=== PATIENT | male | born 1950 | race Caucasian/White ===

== ENCOUNTER 2016-09-09 08:40 | Outpatient (CLI) | payer MEDICARE, OTHER | END 2016-09-09 08:41 | disposition home or self-care (01) | DX: R97.20 Elevated prostate specific antigen [PSA] (principal) ==

== ENCOUNTER 2016-11-10 08:30 | Outpatient (CLI) | payer MEDICARE | END 2016-11-10 08:31 | disposition home or self-care (01) | DX: E78.2 Mixed hyperlipidemia (principal); Z79.899 Other long term (current) drug therapy ==

== ENCOUNTER 2017-04-14 08:49 | Outpatient (CLI) | payer MEDICARE ==
[2017-04-14 18:36] LABS: PSA FREE 0.877 ng/mL (0.16-2.81)
[2017-04-14 18:37] LABS: PSA TOTAL 4.162 ng/mL (0.000-2.000)
== END 2017-04-14 08:50 | disposition home or self-care (01) ==
LOC: LAB.F 08:49
PROVIDERS: ATTEND Internal Medicine
DX: Z87.898 Personal history of other specified conditions (principal)
CPT/HCPCS: 36415; 84154

== ENCOUNTER 2017-11-06 10:34 | Outpatient (CLI) | payer MEDICARE ==
--- NOTE | 2017-11-06 12:33 | XRAY Report ---
TWO VIEW CHEST: 11/06/2017 COMPARISON: No comparison. INDICATION: Fever and cough for 3 days. TECHNIQUE: Two views FINDINGS: Clear lungs. No pneumothorax or pleural effusion. Mediastinum unremarkable. IMPRESSION: NEGATIVE CHEST. TD: 11/06/2017 12:33 MTDD
== END 2017-11-06 10:35 | disposition home or self-care (01) ==
LOC: DI 10:34
PROVIDERS: ATTEND Physician Assistant Medical
DX: R05 Cough (principal); R50.9 Fever, unspecified
CPT/HCPCS: 71046

== ENCOUNTER 2017-11-15 08:24 | Outpatient (CLI) | payer MEDICARE ==
[2017-11-15 11:05] LABS: PSA TOTAL 4.5 ng/mL (0.000-2.000)
[2017-11-15 11:06] LABS: PSA FREE 0.66 ng/mL (0.16-2.81)
[2017-11-15 17:59] LABS: ALBUMIN 3.3 g/dL (3.2-5.5); ALBUMIN/GLOBULIN RATIO 0.8 (1.0-2.2); ALKALINE PHOSPHATASE 73 IU/L (42-121); ALT ALANINE AMINOTRANSFERASE 21 IU/L (10-60); AST ASPARTATE AMINOTRANSFERASE 28 IU/L (10-42); BILIRUBIN,TOTAL 0.8 mg/dL (0.2-1.0); BUN - BLOOD UREA NITROGEN 17 mg/dL (6-20); CALCIUM 9.4 mg/dL (8.5-10.3); CARBON DIOXIDE - CO2 24 mmol/L (21-32); CHLORIDE 101 mmol/L (101-111); CHOLESTEROL 114 mg/dL; GFR - MDRD 74 (>89); GLUCOSE 97 mg/dL (70-100); HDL CHOLESTEROL 23 mg/dL; LDL CHOLESTEROL,CALCULATED 75 mg/dL; LDL/HDL RATIO 3.3 (<3.6); SODIUM 134 mmol/L (135-145); TOTAL PROTEIN 7.2 g/dL (6.7-8.2); VLDL CHOLESTEROL 16 mg/dL
[2017-11-16 15:36] LABS: HEPATITIS C ANTIBODY NON-REACTIVE (NON-REACTIVE)
== END 2017-11-15 08:25 | disposition home or self-care (01) ==
LOC: LAB.F 08:24
PROVIDERS: ATTEND Internal Medicine
DX: D12.6 Benign neoplasm of colon, unspecified (principal); E78.5 Hyperlipidemia, unspecified; Z12.5 Encounter for screening for malignant neoplasm of prostate; Z87.898 Personal history of other specified conditions; Z72.89 Other problems related to lifestyle
CPT/HCPCS: 36415; 80053; 80061; 83721; 84154; 86803

== ENCOUNTER 2018-05-25 09:05 | Outpatient (CLI) | payer MEDICARE ==
[2018-05-25 11:13] LABS: PSA FREE 0.89 ng/mL (0.16-2.81)
[2018-05-25 11:15] LABS: PSA TOTAL 5.01 ng/mL (0.000-2.000)
== END 2018-05-25 09:06 | disposition home or self-care (01) ==
LOC: LAB.F 09:05
PROVIDERS: ATTEND Internal Medicine
DX: R97.20 Elevated prostate specific antigen [PSA] (principal)
CPT/HCPCS: 36415; 84154

== ENCOUNTER 2018-07-27 07:47 | Outpatient (CLI) | payer MEDICARE | END 2018-07-27 07:48 | disposition home or self-care (01) | LOC: LAB.F 07:47 | PROVIDERS: ATTEND Urology | DX: R97.20 Elevated prostate specific antigen [PSA] (principal) | CPT/HCPCS: 36415; 84153 ==

== ENCOUNTER 2018-11-14 10:06 | Outpatient (CLI) | payer MEDICARE | END 2018-11-14 10:07 | disposition home or self-care (01) | LOC: LAB.F 10:06 | PROVIDERS: ATTEND Urology | DX: Z53.9 Procedure and treatment not carried out, unspecified reason (principal) | CPT/HCPCS: 36415; 81001; 81003; 84153; 87086 ==

== ENCOUNTER 2018-11-19 08:03 | Outpatient (CLI) | payer MEDICARE ==
[2018-11-19 11:28] LABS: BILIRUBIN,URINE NEGATIVE (NEGATIVE); GLUCOSE, URINE (UA) NEGATIVE (NEGATIVE); KETONES,URINE (UA) NEGATIVE (NEGATIVE); LEUKOCYTE ESTERASE, URINE NEGATIVE (NEGATIVE); NITRITE,URINE NEGATIVE (NEGATIVE); OCCULT BLOOD,URINE NEGATIVE (NEGATIVE); PROTEIN,URINE NEGATIVE (NEGATIVE); UROBILINOGEN,URINE 0.2 (NORMAL) E.U./dL (NORMAL)
[2018-11-19 11:39] LABS: CLARITY,URINE CLEAR (CLEAR)
[2018-11-19 12:09] LABS: BACTERIA,URINE Rare /HPF (None Seen); RBC,URINE 0-5 /HPF (0-5); SQUAMOUS EPITHELIAL CELL,UR RARE Squamous (<= Few)
== END 2018-11-19 08:04 | disposition home or self-care (01) ==
LOC: LAB.F 08:03
PROVIDERS: ATTEND Urology
DX: R97.20 Elevated prostate specific antigen [PSA] (principal)
CPT/HCPCS: 36415; 81001; 84153; 87086

== ENCOUNTER 2018-12-07 11:58 | Outpatient (CLI) | payer MEDICARE ==
--- NOTE | 2018-12-07 13:26 | XRAY Report ---
Reason: COUGH Procedure Date: 12/07/2018 Accession Number: [id number] / [id number] Procedure: XR - Chest 2 View X-Ray CPT Code: 84866 FULL RESULT: EXAM: CHEST RADIOGRAPHY EXAM DATE: 12/07/2018 12:26 PM. CLINICAL HISTORY: Cough. COMPARISON: CHEST 2 VIEW 11/06/2017 12:21 PM. TECHNIQUE: 2 views. FINDINGS: Lungs/Pleura: There are subtle increased densities in the right lower to mid lung, likely middle lobe. High lung volumes with flattened diaphragms, similar to 2018 and associated with obstructive lung disease. Mediastinum: Heart and mediastinal contours are unremarkable. Other: None. IMPRESSION: Subtle interval increase in opacities in the right lung possibly represent early airspace disease in the setting of obstructive lung disease. RADIA
== END 2018-12-07 11:59 | disposition home or self-care (01) ==
LOC: DI 11:58
PROVIDERS: ATTEND Nurse Practitioner Family
DX: R91.8 Other nonspecific abnormal finding of lung field (principal)
CPT/HCPCS: 71046

== ENCOUNTER 2019-01-04 11:46 | Outpatient (CLI) | payer MEDICARE ==
--- NOTE | 2019-01-04 13:13 | XRAY Report ---
Reason: SPONDYLOSIS,LUMBAR,WITH RADICULOPATHY Procedure Date: 01/04/2019 Accession Number: [id number] / [id number] Procedure: XR - Chest 2 View X-Ray CPT Code: 30716 FULL RESULT: EXAM: CHEST RADIOGRAPHY EXAM DATE: 01/04/2019 11:57 AM. CLINICAL HISTORY: Spondylosis, lumbar, with radiculopatHY. COMPARISON: CHEST 2 VIEW 12/07/2018 12:20 PM. TECHNIQUE: 2 views. FINDINGS: Lungs/Pleura: Previously seen increased prominence of linear markings at the right lower lung has decreased. There is no lobar consolidation. High lung volumes with flattening of diaphragms persists. No pleural effusion or pneumothorax. Mediastinum: Heart and mediastinal contours are unremarkable. Other: The bones are qualitatively osteopenic; this limits evaluation for underlying fractures or masses. IMPRESSION: Interval improvement in the previously seen subtle right lung base opacities, essentially no acute air space disease is detected on today's exam. RADIA
== END 2019-01-04 11:47 | disposition home or self-care (01) ==
LOC: DI 11:46
PROVIDERS: ATTEND Nurse Practitioner Family
DX: R05 Cough (principal)
CPT/HCPCS: 71046

== ENCOUNTER 2020-03-10 08:38 | Outpatient (CLI) | payer MEDICARE | END 2020-03-10 08:39 | disposition home or self-care (01) | LOC: LAB.S 08:38 | PROVIDERS: ATTEND Urology | DX: R97.20 Elevated prostate specific antigen [PSA] (principal) | CPT/HCPCS: 36415; 84153 ==

== ENCOUNTER 2020-12-11 08:00 | Outpatient (CLI) | payer MEDICARE | END 2020-12-11 23:59 | disposition home or self-care (01) | LOC: LAB.S 08:00 | PROVIDERS: ATTEND Physician Assistant | DX: N41.0 Acute prostatitis (principal); R97.20 Elevated prostate specific antigen [PSA] | CPT/HCPCS: 36415; 84153; 87077; 87086 ==

== ENCOUNTER 2020-12-11 12:12 | Outpatient (CLI) | payer MEDICARE | END 2020-12-11 12:13 | disposition home or self-care (01) | LOC: LAB.S 12:12 | PROVIDERS: ATTEND Urology | DX: R97.20 Elevated prostate specific antigen [PSA] (principal) | CPT/HCPCS: 36415; 84153 ==

== ENCOUNTER 2021-04-22 07:44 | Outpatient (CLI) | payer MEDICARE | END 2021-04-22 07:45 | disposition home or self-care (01) | LOC: LAB.S 07:44 | PROVIDERS: ATTEND Urology | DX: R97.20 Elevated prostate specific antigen [PSA] (principal) | CPT/HCPCS: 36415; 84153 ==

== ENCOUNTER 2021-08-03 08:28 | Outpatient (CLI) | payer MEDICARE ==
--- NOTE | 2021-08-03 12:58 | XRAY Report ---
PROCEDURE: Shoulder 3 View LT INDICATIONS: LEFT SHOULDER PAIN TECHNIQUE: 3 views of the shoulder were acquired. COMPARISON: None. FINDINGS: Bones: No fractures or dislocations. No suspicious bony lesions. Visualized ribs appear intact. Mi ld to moderate acromioclavicular joint arthritis. Mild glenohumeral joint arthritis. Soft tissues: No suspicious soft tissue calcifications. 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 Reviewed by: Fay Costello MD, PhD on 08/03/2021 12:57 PM PST Approved by: Fay Costello MD, PhD on 08/03/2021 12:57 PM PST Station ID: [id number]
== END 2021-08-03 08:29 | disposition home or self-care (01) ==
LOC: DI.S 08:28
PROVIDERS: ATTEND Family Medicine
DX: M19.012 Primary osteoarthritis, left shoulder (principal)

== ENCOUNTER 2021-09-28 07:47 | Outpatient (CLI) | payer MEDICARE ==
--- NOTE | 2021-09-28 08:35 | CARDIAC PROCEDURE NOTE ---
Stress Test Report Service Date: 09/28/21 Service Time: 08:00 Ordering Provider: Javier Cowan MD Indication for Test: Screening for underlying CAD in patient with left shoulder pain and elevated NT- proBNP level on labs for insurance evaluation. 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 He has had some increased left shoulder pain with overuse of his left upper extremity, but not triggered by general exertion per se. He denies decrease in stamina, exertional anterior chest discomfort, exertional dyspnea beyond what he has typically experienced in recent years, leg swelling, weight gain and nocturnal dyspnea. Cardiac Risk Factors: Other than occasional cigar smoking, patient denies history of hypertension, dyslipidemia, diabetes and family history of CAD. Type of Stress Test: Exercise Treadmill Test (ETT) Procedure: -Exercise Treadmill Test- After signing informed consent, the patient performed treadmill exercise using a Rafita protocol. The patient exercised for 6 minutes and 59 seconds achieved a peak heart rate of 148 (100 percent predicted maximum heart rate for age), and an estimated workload of 8.6 METS. The test was terminated due to fatigue/shortness of breath, with patient having achieved his target heart rate. Resting heart rate: 63 Peak heart rate: 148 Normal response to exercise. Resting BP: 121/85 Peak BP: 203/88 Normal BP response to exercise. Rhythm during exercise: Sinus rhythm throughout, with occasional isolated premature atrial and premature ventricular complexes. Symptoms: No specific cardiovascular symptoms, no left shoulder discomfort. EKG at rest showed normal sinus rhythm, probable left anterior fascicular block, RSR' in V1 suggestive of right ventricular conduction delay and moderate generalized ST elevation, most likely indicative of early repolarization. EKG at peak stress showed no ischemia by EKG criteria. In Recovery heart rate rapidly/normally returned to baseline, BP gradually decreased towards baseline level. No imaging was ordered with this stress test. Hawk Griffin MD, was present throughout this treadmill stress study and supervised it in its entirety. Summary: 1) Exercise tolerance slightly above average for age as evidenced by ALEN of - 9.3%. 2) Abnormal resting EKG. 3) Adequate level of exercise was achieved on this treadmill stress test. 4) Normal BP response to exercise. 5) No ischemic changes by EKG criteria were seen at peak stress. 6) No imaging was ordered with this test. CONCLUSIONS: 1) Low risk Rafita exercise tolerance test, with above average exertional tolerance and no symptoms nor EKG evidence of inducible ischemia. 2) We reviewed the possible implication of a modestly elevated proNT-BNP level, which can be a sign of mild and likely age-related diastolic dysfunction (not assessed with stand alone ETT). Patient was counseled on signs and symptoms of clinical heart failure that he should be vigilant for. It may be reasonable to repeat this test in about a year, with diagnostic echocardiogram if value is increasing.
== END 2021-09-28 07:48 | disposition home or self-care (01) ==
LOC: DI 07:47
PROVIDERS: ATTEND Family Medicine
DX: I25.119 Atherosclerotic heart disease of native coronary artery with unspecified angina pectoris (principal); F17.290 Nicotine dependence, other tobacco product, uncomplicated; R79.89 Other specified abnormal findings of blood chemistry
CPT/HCPCS: 93017

== ENCOUNTER 2021-09-28 07:56 | Outpatient (CLI) | payer MEDICARE ==
--- NOTE | 2021-09-28 10:43 | XRAY Report ---
PROCEDURE: Shoulder 2 View LT INDICATIONS: PAIN IN LEFT SHOULDER TECHNIQUE: 2 views of the shoulder were acquired. COMPARISON: None. FINDINGS: Bones: No fractures or dislocations. Moderate acromioclavicular joint and glenohumeral joint osteoph ytic changes are seen. No suspicious bony lesions. Visualized ribs appear intact. Soft tissues: No suspicious soft tissue calcifications. IMPRESSION: Moderate left shoulder joint osteoarthritis. No shoulder fracture or dislocation. No laila ss soft tissue abnormality. Reviewed by: Mundo Martinez MD on 09/28/2021 10:41 AM PST Approved by: Mundo Martinez MD on 09/28/2021 10:41 AM PST Station ID: [id number]
== END 2021-09-28 07:57 | disposition home or self-care (01) ==
LOC: DI 07:56
PROVIDERS: ATTEND Family Medicine
DX: M19.012 Primary osteoarthritis, left shoulder (principal); I25.119 Atherosclerotic heart disease of native coronary artery with unspecified angina pectoris; F17.290 Nicotine dependence, other tobacco product, uncomplicated; R79.89 Other specified abnormal findings of blood chemistry
CPT/HCPCS: 93017

== ENCOUNTER 2021-10-29 08:32 | Outpatient (CLI) | payer MEDICARE ==
[2021-10-29 15:16] LABS: BASOPHILS # (AUTO) 0.1 10^3/uL (0.0-0.1); BASOPHILS % (AUTO) 1.1 %; EOSINOPHILS # (AUTO) 0.3 10^3/uL (0.0-0.7); EOSINOPHILS % (AUTO) 3.9 %; HCT - HEMATOCRIT 44.8 % (42.0-52.0); HGB - HEMOGLOBIN 14.7 g/dL (14.0-18.0); LYMPHOCYTES # (AUTO) 1.7 10^3/uL (1.5-3.5); LYMPHOCYTES % (AUTO) 26.1 %; MEAN CORPUSCULAR HEMOGLOBIN 29.9 pg (27.0-31.0); MEAN CORPUSCULAR HGB CONC 32.8 g/dL (32.0-36.0); MEAN CORPUSCULAR VOLUME 91.1 fL (80.0-94.0); MEAN PLATELET VOLUME 11.6 fL (7.4-11.4); MONOCYTES # (AUTO) 0.5 10^3/uL (0.0-1.0); MONOCYTES % (AUTO) 7.4 %; NEUTROPHILS # (AUTO) 3.9 10^3/uL (1.5-6.6); NEUTROPHILS % (AUTO) 61.2 %; PLT - PLATELET COUNT 214 10^3/uL (130-450); RED BLOOD COUNT 4.92 10^6/uL (4.70-6.10); RED CELL DISTRIBUTION WIDTH 12.9 % (12.0-15.0); WHITE BLOOD COUNT 6.4 x10^3/uL (4.8-10.8)
[2021-10-29 16:08] LABS: ALBUMIN 4.2 g/dL (3.2-5.5); ALBUMIN/GLOBULIN RATIO 1.6 (1.0-2.2); ALKALINE PHOSPHATASE 85 IU/L (42-121); ALT ALANINE AMINOTRANSFERASE 13 IU/L (10-60); AST ASPARTATE AMINOTRANSFERASE 19 IU/L (10-42); BILIRUBIN,TOTAL 0.8 mg/dL (0.2-1.0); BUN - BLOOD UREA NITROGEN 13 mg/dL (6-20); CALCIUM 9.4 mg/dL (8.5-10.3); CARBON DIOXIDE - CO2 27 mmol/L (21-32); CHLORIDE 102 mmol/L (101-111); CHOL/HDL RATIO 3.3 (<5.0); CHOLESTEROL 144 mg/dL; CREATININE 1.1 mg/dL (0.6-1.2); GFR - MDRD 66 (>89); GLUCOSE 95 mg/dL (70-100); HDL CHOLESTEROL 43 mg/dL; LDL CHOLESTEROL,CALCULATED 89 mg/dL; LDL/HDL RATIO 2.1 (<3.6); SODIUM 136 mmol/L (135-145); TOTAL PROTEIN 6.9 g/dL (6.7-8.2); TRIGLYCERIDES 60 mg/dL; VLDL CHOLESTEROL 12 mg/dL
== END 2021-10-29 08:33 | disposition home or self-care (01) ==
LOC: LAB.S 08:32
PROVIDERS: ATTEND Internal Medicine
DX: E78.5 Hyperlipidemia, unspecified (principal); R97.20 Elevated prostate specific antigen [PSA]; Z79.899 Other long term (current) drug therapy
CPT/HCPCS: 36415; 80053; 80061; 83721; 84153; 85025

== ENCOUNTER 2023-03-30 08:00 | Outpatient (CLI) | payer MEDICARE ==
--- NOTE | 2023-03-30 10:28 | XRAY Report ---
PROCEDURE: Lumbar Spine 2 View INDICATIONS: LEFT SCIATICA LUMBAGO TECHNIQUE: 2 views of the lumbar spine were acquired. COMPARISON: None. FINDINGS: Bones: 5 [id number]-[id number]-bjbiyth vertebrae are present. Dextrocurvature of the lumbar spine. Grade 1 anterol isthesis of L4 on L5. Mild retrolisthesis of L2 on L3. Facet arthropathy. Multilevel disc height loss , severe at L5-S1. Anterior osteophytosis.. No vertebral body compression fractures. No suspicious bony lesions. Soft tissues: Overlying bowel gas pattern is normal. No suspicious soft tissue calcifications. Ath erosclerotic vascular calcifications. IMPRESSION: Multilevel degenerative changes of the lumbar spine. No vertebral body compression defor mities. Reviewed by: Ángel Scanlon MD on 03/30/2023 10:27 AM PDT Approved by: Ángel Scanlon MD on 03/30/2023 10:27 AM PDT Station ID: [id number]
== END 2023-03-30 23:59 | disposition home or self-care (01) ==
LOC: DI.S 08:00
PROVIDERS: ATTEND Physician Assistant
DX: M47.816 Spondylosis without myelopathy or radiculopathy, lumbar region (principal); M47.817 Spondylosis without myelopathy or radiculopathy, lumbosacral region

== ENCOUNTER 2023-05-18 07:52 | Outpatient (CLI) | payer MEDICARE | END 2023-05-18 07:53 | disposition home or self-care (01) | LOC: LAB.S 07:52 | PROVIDERS: ATTEND Urology | DX: R97.20 Elevated prostate specific antigen [PSA] (principal) | CPT/HCPCS: 36415; 84153 ==

== ENCOUNTER 2023-07-28 07:47 | Outpatient (CLI) | payer MEDICARE ==
[2023-07-28 15:49] LABS: ALBUMIN 4.3 g/dL (3.2-5.5); ALKALINE PHOSPHATASE 94 IU/L (42-121); ALT ALANINE AMINOTRANSFERASE 10 IU/L (10-60); AST ASPARTATE AMINOTRANSFERASE 18 IU/L (10-42); BILIRUBIN,TOTAL 0.7 mg/dL (0.2-1.0); BUN - BLOOD UREA NITROGEN 16 mg/dL (6-20); CALCIUM 10.1 mg/dL (8.5-10.3); CARBON DIOXIDE - CO2 27 mmol/L (21-32); CHLORIDE 102 mmol/L (101-111); CHOL/HDL RATIO 3.4 (<5.0); CHOLESTEROL 137 mg/dL; GFR - MDRD 73 (>89); GLUCOSE 98 mg/dL (74-104); HDL CHOLESTEROL 40 mg/dL; LDL CHOLESTEROL,CALCULATED 77 mg/dL; LDL/HDL RATIO 1.9 (<3.6); POTASSIUM 4.5 mmol/L (3.5-4.5); SODIUM 135 mmol/L (135-145); TOTAL PROTEIN 6.5 g/dL (6.4-8.9); TRIGLYCERIDES 102 mg/dL (48-352); VLDL CHOLESTEROL 20 mg/dL
== END 2023-07-28 07:48 | disposition home or self-care (01) ==
LOC: LAB.S 07:47
PROVIDERS: ATTEND Internal Medicine
DX: E78.5 Hyperlipidemia, unspecified (principal)
CPT/HCPCS: 36415; 80053; 80061; 83721

== ENCOUNTER 2024-01-29 09:02 | Outpatient (CLI) | payer MEDICARE ==
[2024-01-29 15:38] LABS: CHOL/HDL RATIO 3.3 (<5.0); CHOLESTEROL 148 mg/dL; HDL CHOLESTEROL 45 mg/dL; LDL CHOLESTEROL,CALCULATED 89 mg/dL; TRIGLYCERIDES 71 mg/dL (48-352); VLDL CHOLESTEROL 14 mg/dL
== END 2024-01-29 09:03 | disposition home or self-care (01) ==
LOC: LAB.S 09:02
PROVIDERS: ATTEND Internal Medicine
DX: E78.5 Hyperlipidemia, unspecified (principal); R97.20 Elevated prostate specific antigen [PSA]
CPT/HCPCS: 36415; 80061; 83721; 84153